=== PATIENT | male | born 1955 | race Caucasian/White ===

== ENCOUNTER 2025-04-18 13:24 | Emergency (ER) | payer OTHER, SELFPAY ==
[2025-04-18] VITALS (9 sets, daily range): BP systolic 106–132; BP diastolic 58–73; PULSE 78–85
[2025-04-18 13:55] LABS: Hematocrit 41.5 % (39.0-52.0); Hemoglobin 14.0 g/dL (13.0-18.0); Mean Corp Hgb Conc. 33.7 g/dL (33.0-37.0); Mean Corpuscular Volume 98.1 fL (80.0-94.0); Nucleated Red Blood Cells % 0 % (-); Platelet Count 160 10^3/uL (130-400); Red Cell Dist. Width 12.9 % (11.5-14.5)
[2025-04-18 14:04] LABS: ALT (SGPT) 17 U/L (0-50); AST (SGOT) 19 U/L (17-59); Albumin 4.4 g/dl (3.5-5.0); Alkaline Phosphatase 44 U/L (38-126); Blood Urea Nitrogen 18 mg/dl (9-20); Calcium 9.3 mg/dl (8.4-10.2); Carbon Dioxide 27 mmol/L (22-30); Chloride 105 mmol/L (98-107); Glucose 117 mg/dl (70-99); Potassium 4.5 mmol/L (3.5-5.1); Sodium 137 mmol/L (135-145); Total Protein 7.2 g/dl (6.3-8.2); eGFR > 60.00
--- NOTE | 2025-04-19 00:23 | ED.GENMED ---
History of Present Illness
General
Chief Complaint: Dizziness
Source: patient
Exam Limitations: none
Time Seen by Provider: 04/18/25 17:22
Nursing documentation reviewed up to this point in time: agreed with
History of Present Illness
History of Present Illness:
Patient states he was working out at home - abd. crunches, sit-ups etc. States fci thru his routine he stopped to use bathroom. After urinating he developed sudden onset of dizziness. Denies any headache, vision changes. No CP/prssure, SOB.
He rested for a bit but dizziness persisted so he called 911. Symptoms began to resolve on way to ED, he is now symptom free. No prior history of same. Denies fever/chills, recent illness. No history of trauma
Past History
Past History
ED Past Medical History: None
ED Past Surgical History: None
Patient has exhibited threatening behavior?: No
Review of Systems
Review of Systems
Allergies reviewed?: Yes
All Other Systems: ROS reviewed and negative except as documented in HPI and ROS
Constitutional: Reports no symptoms
EENT: Reports no symptoms
Respiratory: Reports no symptoms
Cardiac: Reports no symptoms
ABD/GI: Reports no symptoms
: Reports no symptoms
Musculoskeletal: Reports no symptoms
Skin: Reports no symptoms
Neurological: Reports dizzy
Psychiatric: Reports no symptoms
Phy Exam
General Physical Exam
General Presentation: well appearing and no apparent distress
General age: appears stated age
General Skin: warm and dry
General Habitus: normal
General Mental: alert
Cardiovascular Exam
Cardiovascular Exam: regular rate/rhythm and no edema
Pulmonary Exam
Pulmonary Exam: no respiratory distress and chest non tender
Neurological Exam
Neurological Exam: alert, oriented x3, CN II-XII intact, no motor deficits, no sensory deficits, speech normal and normal gait
Musculoskeletal Exam
Musculoskeletal Exam: full ROM and neuro vasc intact
Skin Exam
Skin Exam: normal color, warm/dry, no rash and no petechia
Psychiatric Exam
Psychiatric Exam: normal mood/affect
Course
Orders/Labs/Results
Orders:
Orders
04/18/25 13:28
Electrocardiogram (*1) Urgent
Reason for Study: Abdominal Pain
EKG- Treatment ONCE
04/18/25 13:34
Complete Blood Count/With Diff Urgent
Comprehensive Metabolic Panel Urgent
04/18/25 18:02
CT Head W/o Iv Contrast Urgent
Comment:
Reason For Exam: dizziness
Orthostatic VS- Treatment ONCE
Abnormal Lab Results
04/18/25
13:34
WBC 3.8 L 10^3/uL
(4.8-10.8)
RBC 4.23 L 10^6/uL
(4.70-6.10)
MCV 98.1 H fL
(80.0-94.0)
MCH 33.1 H pg
(27.0-31.0)
Absolute Lymphs (auto) 0.5 L 10^3/uL
(1.2-3.4)
Neutrophils % 82.6 H %
(42.2-75.2)
Lymphocytes % 13.4 L %
(20.5-51.1)
Glucose 117 H mg/dl
(70-99)
04/18/25 13:34
04/18/25 13:34
Vital Signs
Initial and Last Documented VS:
Initial Vital Signs
Temp Pulse Resp BP Pulse Ox
98.3 F 54 16 118/58 98
04/18/25 13:25 04/18/25 13:25 04/18/25 13:25 04/18/25 13:25 04/18/25 13:25
Last Documented Vital Signs
Temp Pulse Resp BP Pulse Ox
98.3 F 52 16 113/73 98
04/18/25 13:25 04/18/25 22:42 04/18/25 22:42 04/18/25 22:42 04/18/25 22:42
*Radiology
Radiology exam reviewed: radiology read reviewed
*Pulse Oximetry
SaO2: 98
Oxygen Mode of Delivery: Room air
Patient hypoxic: no
*Critical Care Note
Total Time (30-74mins, 75-104mins- exclusive of procedures): Not Applicable
Update Note
Update Note:
Patient to ED after episode of dizziness this AM. No n/v/headache, vision changes. No cp/pressure, SOB. Symptoms resolved prior to exam, and he has remained symptom free. Labs, CT reviewed, no findings to explain his symptoms. Case discussed
with Dr. Gonzalez. No further testing indicated from neuro standpoint. WIll discharge home and he will follow up with PCP Given instructins on s/s to return to ED and he is agreeable to plan.
ED Attending Note
-
Portions of this chart may have been created with voice recognition software.� Occasional wrong word or��sound alike� substitutions may have occurred due to the inherent limitations of voice recognition software.
Discharge Plan
Departure
Patient Disposition: Home (Routine Discharge)
Date of Disposition: 04/18/25
Time of Disposition: 22:00
Patient with high blood pressure during this ER visit?: No
Condition: Good
Covid-19: Not Applicable
Discharge Problem:
Dizziness
Instructions: Dizziness
Prescriptions:
No Action
cephalexin 500 MG capsule
500 mg PO BID Qty: 19 0RF
Referrals:
Jay Beltran MD [Family Provider, Family Practice] - Tomorrow
Activity Restrictions/Additional Instructions:
Return to the emergency department for return of your symptoms or for any further concerns.
Interventions
Interventions:
*Risk Screen - Suicide Last Done: 04/18/25 13:25
*General Assessment Last Done: 04/18/25 20:11
*Neglect/Abuse Screening Last Done: 04/18/25 13:25
*ED- Fall Risk Assessment Last Done: 04/18/25 20:11
*Nursing Disposition Last Done: 04/18/25 22:42
ED- Neurological Assessment Last Done: 04/18/25 20:11
ED- Cardiac Assessment Last Done: 04/18/25 20:24
ED Swallowing Screen Last Done: 04/18/25 20:11
Discharge Date and Time
Discharge Date/Time: 04/18/25 22:42
Print Language: [place]
== END 2025-04-18 22:42 | disposition home or self-care (01) ==
LOC: EMR 13:24
PROVIDERS: Emergency Medicine; EMERGENCY PHYSICIAN Emergency Medicine; FAMILY PHYSICIAN Family Medicine
DX: R42 Dizziness and giddiness (principal)
CPT/HCPCS: 99284; 70450; 80053; 85025; 93005